=== PATIENT | female | born 1990 ===

== ENCOUNTER 2023-09-21 16:35 | Inpatient (IN) | payer BC ==
--- OUTSIDE RECORDS SUMMARY | 2023-09-21 16:42 | XMS REPORT | Continuity of Care Document ---
:1990 Author Organization [facility] t Address [address] [facility] [address] [place] [address] Care Team Providers Name Role Phone BETHANIE GUERRA Attending Clinician Unavailable YESICA BERRY Attending Clinician Unavailable BETHANIE GUERRA Admitting Clinician Unavailable YESICA BERRY Admitting Clinician Unavailable Payers Payer Name Policy Type Policy Number Effective Date Expiration Date S [facility] [employer] [id number] 2019 00:00:00 [employer] EPO Problems This patient has no known problems. Allergies, Adverse Reactions, Alerts This patient has no known allergies or adverse reactions. Medications This patient has no known medications. Procedures This patient has no known procedures. Encounters Start End Encounter Admission Attending Care Care Encounter Source Date/Time Date/Time Type Type Clinicians Facility Department ID 2022-10-18 Outpatient [facility] [id number] [place] 10:45:19 [id number] [facility] 2022-10-11 Inpatient MARI [facility] [address] [facility] 11:04:14 BETHANEI 2022-10-06 Outpatient [facility] [id number] [place] 11:38:53 [id number] [facility] 2022-10-03 Inpatient JAMAL, [facility] [address] [facility] 08:45:47 YESICA 2022-09-11 Outpatient [facility] [id number] [place] 13:41:40 [id number] [facility] 2022-07-27 Outpatient [facility] [id number] [place] 21:25:38 [id number] [facility] 2022-06-13 Outpatient [facility] [id number] [place] 14:56:47 [id number] [facility] 2022-06-08 Outpatient [facility] [id number] [place] 09:35:43 [id number] [facility] 2022-06-06 Outpatient [facility] [id number] [place] 08:58:52 [id number] [facility] 2022-05-30 Outpatient [facility] [id number] [place] 14:55:19 [id number] [facility] 2022-05-26 Outpatient [facility] [id number] [place] 09:15:50 [id number] [facility] 2022-05-16 Outpatient [facility] [id number] [place] 09:58:16 [id number] [facility] 2022-04-04 Outpatient [facility] [id number] [place] 09:32:25 [id number] [facility] 2022-03-31 Outpatient [facility] [id number] [place] 06:36:08 [id number] [facility] 2022-03-30 Outpatient [facility] [id number] [place] 15:56:10 [id number] [facility] 2022-03-10 Outpatient [facility] [id number] [place] 08:45:51 [id number] 2022-10-15 Inpatient Nacho JAMAL [facility] [address] [facility] 09:35:00 13:30:00 YESICA 2022-10-10 2022-10-10 Outpatient [facility] [id number] [place] 15:00:00 15:38:46 2022-09-13 2022-09-13 Outpatient [facility] [id number] [place] 15:00:00 16:03:33 Health 2022-06-27 2022-06-27 Outpatient [facility] [id number] [place] 09:45:00 10:03:44 Health 2020-04-07 2020-04-09 Inpatient JAMAL [facility] [address] [facility] 16:28:00 13:45:00 YESICA Results This patient has no known results.
[2023-09-21 17:11] VITALS: BMI 23.5
[2023-09-21] MEDS ORDERED: ONDANSETRON 4 MG/2 ML VIAL IV PRN (17:48)
[2023-09-21] MEDS ORDERED: HYDROMORPHONE HCL 1 MG/ML INJ IV PRN (17:48)
[2023-09-21] MEDS: HYDROMORPHONE HCL 0.5 MG/0.5 ML INJ IV PRN (18:44)
[2023-09-21] MEDS: AMPICILLIN/SULBACT 3 GM in NA CHLORIDE 0.9% 100 ML IVPB SCH ×2 (18:45→23:26)
[2023-09-21] MEDS: NA CHLORIDE 0.9% 1,000 ML IV SCH (18:45)
[2023-09-21 19:09] LABS: Protime INR 1.07
[2023-09-21 19:11] LABS: Absolute Lymphocytes (CBC) 2.4 K/uL (0.7-4.9); Hematocrit 38.9 % (36.0-45.0); Lymphocytes % 22.6 % (15.3-44.8); MCV 86.3 fL (80-100); MPV 8.6 fL (7.6-11.3); Platelets 243 thou/uL (152-406); RBC Red Blood Cell Count 4.51 M/uL (3.86-4.86)
[2023-09-21 19:15] LABS: Potassium 3.7 mEq/L (3.5-5.1)
[2023-09-21] MEDS: ACETAMINOPHEN 500 MG TAB PO PRN (20:26)
[2023-09-22] MEDS: AMPICILLIN/SULBACT 3 GM in NA CHLORIDE 0.9% 100 ML IVPB SCH ×3 (05:25→18:24)
[2023-09-22] MEDS: NA CHLORIDE 0.9% 1,000 ML IV SCH (07:57)
[2023-09-22] MEDS: HYDROMORPHONE HCL 0.5 MG/0.5 ML INJ IV PRN ×2 (08:00→16:49)
--- NOTE | 2023-09-22 09:38 | P.HP ---
Certification for Inpatient Patient admitted to: Inpatient With expected LOS: >2 Midnights Patient will require the following post-hospital care: None Practitioner: I am a practitioner with admitting privileges, knowledge of patient current condition, hospital course, and medical plan of care. Services: Services provided to patient in accordance with Admission requirements found in Title 42 Section 412.3 of the Code of Federal Regulations Patient History Date of Service: 09/21/23 Reason for admission: Mandibular osteomyelitis History of Present Illness: Patient is a 33-year-old female who came to the hospital after she was diagnosed by her oral maxillofacial surgeon, Dr. Yayo mart, with an infected mandible. And had a tooth extraction done about a month ago. Her wisdom tooth was bothering her and at that time it was removed. The right lower tooth was removed patient had necrotic bone tissue noted and this was debrided. Patient was followed up earlier this week and had a CT performed which revealed persistent necrosis of the mandible. The tooth next to the right lower wisdom tooth was removed that area of the bone was felt to be necrotic so there was debridement performed. Small area to the mandible that was infected was removed. Spoke with oral maxillofacial surgery and infectious disease. Plan of care at this time would be IV antibiotics and to treat this like an osteomyelitis infection. Plan is to get a PICC line placed and 6 weeks of IV antibiotics arranged. Infectious diseases consulted. They recommended Unasyn at this time. Patient will be admitted to the hospital for further treatment. Allergies No Known Allergies Allergy (Unverified 09/21/23 17:29) Home Medications: NK [No Home Meds] 09/21/23 - Past Medical/Surgical History Has patient received pneumonia vaccine in the past: No Diabetic: No -: wisdom teeth pulled -: mandable sx - Family History Father Family History: Reviewed- Non-Contributory - Social History Smoking Status: Never smoker Alcohol use: No CD- Drugs: No Caffeine use: No Place of Residence: Home Review of Systems 10-point ROS is otherwise unremarkable Physical Examination - Vital Signs Temperature: 98.8 F Blood Pressure: 111/70 Pulse: 64 Respirations: 16 Pulse Ox (%): 98 - Physical Exam General: Alert, In no apparent distress, Oriented x3 HEENT: Atraumatic, PERRLA, Mucous membr. moist/pink, Other (Swelling of the right mandibular bone), EOMI, Sclerae nonicteric Neck: Supple, 2+ carotid pulse no bruit, No LAD, Without JVD or thyroid abnormality Respiratory: Clear to auscultation bilaterally, Normal air movement Cardiovascular: Regular rate/rhythm, Normal S1 S2, No murmurs Gastrointestinal: Normal bowel sounds, Soft and benign, Non-distended, No tenderness Musculoskeletal: No clubbing, No swelling, No tenderness Integumentary: No rashes Neurological: Normal gait, Normal speech, Normal strength at 5/5 x4 extr, Normal tone, Sensation intact, Cranial nerves 3-12 intact, Normal affect Lymphatics: No axilla or inguinal lymphadenopathy - Studies Laboratory Data (last 24 hrs) 09/21/23 09/21/23 09/21/23 18:40 18:40 18:40 WBC 10.60 Hgb 13.3 Hct 38.9 Plt Count 243 PT 11.8 INR 1.07 APTT 44.5 H Sodium 137 Potassium 3.7 BUN 15 Creatinine 0.83 Glucose 162 H Assessment & Plan - Problems (Diagnosis) (1) Acute osteomyelitis of mandible Current Visit: Yes Status: Acute - Plan PLAN: 1. Continue with IV antibiotic 2. Continue with wound care 3. ID consultation/Oral maxillofacial surgery consultation 4. Gentle IV hydration 5. Monitor CBC 6. Strict blood sugar monitoring 7. Pain control 8. GI and DVT prophylaxis Discharge Plan: Home Plan to discharge in: Greater than 2 days - Advance Directives Does patient have a Living Will: No Does patient have a Durable POA for Healthcare: No - Code Status/Comfort Care Code Status Assessed: Yes Code Status: Full Code Critical Care: No Time Spent Managing PTS Care (In Minutes): 45
--- NOTE | 2023-09-22 09:39 | P.PN ---
Subjective Chief Complaint: Mandibular osteomyelitis <Ivett Block - Last Filed: 09/22/23 09:38> Date of Service: 09/22/23 Reports that swelling of the right jaw, worse today. No trouble breathing or swallowing. No reported fever <AbhishekshubhamEmerita - Last Filed: 09/22/23 11:26> Review of Systems 10-point ROS is otherwise unremarkable <Emerita Donaldson - Last Filed: 09/22/23 11:26> Physical Examination - Vital Signs Temperature: 98.8 F Blood Pressure: 111/70 Pulse: 64 Respirations: 16 Pulse Ox (%): 98 - Studies Laboratory Data (last 24 hrs) 09/21/23 09/21/23 09/21/23 18:40 18:40 18:40 WBC 10.60 Hgb 13.3 Hct 38.9 Plt Count 243 PT 11.8 INR 1.07 APTT 44.5 H Sodium 137 Potassium 3.7 BUN 15 Creatinine 0.83 Glucose 162 H <Faye Blockkira Shayan - Last Filed: 09/22/23 09:38> - Physical Exam General: Alert, In no apparent distress, Oriented x3 HEENT: Atraumatic, Normocephalic, Mucous membr. moist/pink, Other (R) jaw swelling, no drooling, 02 sats 98%) Neck: Supple, 2+ carotid pulse no bruit, JVD not distended Respiratory: Clear to auscultation bilaterally, Normal air movement Cardiovascular: No edema, Normal pulses, Regular rate/rhythm Capillary refill: <2 Seconds Gastrointestinal: Normal bowel sounds, Soft and benign Musculoskeletal: No clubbing, No swelling Integumentary: Other (right jaw swelling, tenderness, no redrenss or drainge) Neurological: Normal speech, Normal strength at 5/5 x4 extr - Studies Laboratory Data (last 24 hrs) 09/21/23 09/21/23 09/21/23 18:40 18:40 18:40 WBC 10.60 Hgb 13.3 Hct 38.9 Plt Count 243 PT 11.8 INR 1.07 APTT 44.5 H Sodium 137 Potassium 3.7 BUN 15 Creatinine 0.83 Glucose 162 H <Emerita Donaldson - Last Filed: 09/22/23 11:26> Assessment & Plan - Problems (Diagnosis) (1) Acute osteomyelitis of mandible Current Visit: Yes Status: Acute - Plan PLAN: 1. Continue with IV antibiotic 2. Continue with wound care 3. ID consultation/Oral maxillofacial surgery consultation 4. Gentle IV hydration 5. Monitor CBC 6. Strict blood sugar monitoring 7. Pain control 8. GI and DVT prophylaxis - Advance Directives Does patient have a Living Will: No Does patient have a Durable POA for Healthcare: No - Code Status/Comfort Care Code Status: Full Code <Ivett Block - Last Filed: 09/22/23 09:38> - Plan (1) Acute osteomyelitis of mandible Current Visit: Yes Status: Acute - Plan 09/[address] face/neck rule out worsening abscess Physician Review: Patient Assessed, Agree with Above Assessment and Plan Critical Care: No Time Spent Managing PTS Care (In Minutes): 35 <Emerita Donaldson - Last Filed: 09/22/23 11:26>
--- NOTE | 2023-09-22 12:18 | RAD REPORT ---
EXAM DESCRIPTION: CT - Soft Tissue Neck W/Contr CLINICAL HISTORY: NECK SWELLING COMPARISON: No comparisons TECHNIQUE All CT scans are performed using dose optimization technique as appropriate and may includ e automated exposure control or mA/KV adjustment according to patient size. FINDINGS: Post procedural changes from prior right second and third molar extraction and reportedly removal of a portion of necrotic mandibular bone. Right-sided facial swelling is present. Enhancing f luid is present at the cavities and along the buccal mucosa. The fluid external to the cavity measure s approximately 9 mm x 5 mm. Changes from prior left third molar extraction. Fossa Rosenmller are no rmal. Parapharyngeal fat triangles are symmetric. Tongue base structures are normal. Epiglottis and aryepiglottic folds are normal. Piriform sinuses are well aerated. The vocal cords are normal in appearance. Salivary glands are normal in appearance. Upper lung avila are clear. Included intracranial contents are unremarkable. IMPRESSION: Procedural changes from recent right mandibular molar extraction with small enhancing fl uid collection concerning for a small abscess. Right-sided facial swelling likely reflecting a cellul itis. The airway is widely patent. The inflammatory changes do not extend into the deeper structures of the neck.
[2023-09-22] MEDS ORDERED: VANCOMYCIN 1.25 GM in NA CHLORIDE 0.9% 250 ML IVPB SCH (16:00)
[2023-09-22] MEDS ORDERED: DIPHENHYDRAMINE 50 MG/ML VIAL IV ONE (18:11)
[2023-09-22] MEDS ORDERED: dexAMETHasone 4 MG/ML VIAL IV ONE (18:11)
[2023-09-22] MEDS: Mupirocin NASAL 2 APPL/1 GM TUBE NAS SCH (20:53)
[2023-09-23] MEDS: AMPICILLIN/SULBACT 3 GM in NA CHLORIDE 0.9% 100 ML IVPB SCH ×5 (00:11→23:53)
[2023-09-23] MEDS: NA CHLORIDE 0.9% 1,000 ML IV SCH ×3 (07:58→21:46)
[2023-09-23] MEDS: Mupirocin NASAL 2 APPL/1 GM TUBE NAS SCH ×2 (07:59→20:12)
--- NOTE | 2023-09-23 08:03 | P.PN ---
Subjective Date of Service: 09/23/23 Chief Complaint: Mandibular osteomyelitis Subjective: No new changes Reports that swelling of feels same today, No trouble breathing or swallowing. No reported fever <Emerita Donaldson - Last Filed: 09/23/23 09:35> Date of Service: 09/23/23 <Ivett Block - Last Filed: 09/24/23 06:31> Review of Systems 10-point ROS is otherwise unremarkable <Emerita Donaldson - Last Filed: 09/23/23 09:35> Physical Examination - Vital Signs Temperature: 97.6 F Blood Pressure: 109/63 Pulse: 60 Respirations: 16 Pulse Ox (%): 96 - Physical Exam General: Alert, In no apparent distress, Oriented x3 HEENT: Atraumatic, Normocephalic, Other Neck: Supple, 2+ carotid pulse no bruit Respiratory: Clear to auscultation bilaterally, Normal air movement Cardiovascular: No edema, Normal pulses, Regular rate/rhythm Capillary refill: <2 Seconds Gastrointestinal: Normal bowel sounds, Soft and benign Musculoskeletal: No clubbing, No swelling Integumentary: Other ( Other (right jaw swelling, tenderness, no redrenss or drainge)) Neurological: Normal speech, Normal strength at 5/5 x4 extr <Emerita Donaldson - Last Filed: 09/23/23 09:35> Assessment And Plan - Plan (1) Acute osteomyelitis of mandible Current Visit: Yes Status: Acute - Plan PLAN: 1. Continue with IV antibiotic 2. Continue with wound care 3. ID consultation/Oral maxillofacial surgery consultation 4. Gentle IV hydration 5. Monitor CBC 6. Strict blood sugar monitoring 7. Pain control 8. GI and DVT prophylaxis 09/[address] face/neck rule out worsening abscess IMPRESSION: Procedural changes from recent right mandibular molar extraction with small enhancing fluid collection concerning for a small abscess. Right-sided facial swelling likely reflecting a cellulitis. The airway is widely patent. The inflammatory changes do not extend into the deeper structures of the neck. Discharge Plan: Home - Code Status/Comfort Care Code Status: Full Code Physician Review: Patient Assessed, Agree with Above Assessment and Plan Critical Care: No Time Spent Managing PTS Care (In Minutes): 35 <Emerita Donaldson - Last Filed: 09/23/23 09:35> - Current Problems (Diagnosis) (1) Acute osteomyelitis of mandible Current Visit: Yes Status: Acute <Ivett Block - Last Filed: 09/24/23 06:31> Date of Service: 09/23/23 Spoke with oral maxillofacial surgeon. Part of the mandible that was necrotic was removed. Repeat CT did not show any bone necrosis. Questionable very small fluid collection but patient without fever and no white count so oral maxillofacial surgery did not think this was a true abscess. The patient had a lot of dental work done in that area so it could be the fact that they cleaned it out and irrigated it with fluid. May need to repeat CT imaging in about a week. Continue with IV antibiotic therapy for 6 weeks per recommendation from infectious disease. <Ivett Block - Last Filed: 09/24/23 06:31>
[2023-09-23] MEDS: KETOROLAC 30 MG/ML INJ IV PRN ×2 (10:29→21:46)
--- NOTE | 2023-09-23 13:08 | RAD REPORT ---
EXAM DESCRIPTION: RAD - Chest Single View - 09/23/2023 2:55 am CLINICAL HISTORY: 33 years Female PICC placement COMPARISON: None FINDINGS: Right upper extremity PICC tip likely in the caudal SVC. Lung volumes adequate. Cardiac silhouette is normal in size. No pneumothorax. No large pleural effusion. No focal consolidation. Mild bilateral interstitial thickening. No acute bony finding. IMPRESSION: 1. Right upper extremity PICC tip likely in the caudal SVC. 2. Mild bilateral interstitial thickening. Electronically signed by: Roberto Chua MD 09/23/2023 3:08 AM LASER ENGINEER Due to temporary technical issues with the PACS/Fluency reporting system, reports are being signed by the in house radiologists without review as a courtesy to insure prompt reporting. The interpreting radiologist is fully responsible for the content of the report.
[2023-09-24] MEDS: AMPICILLIN/SULBACT 3 GM in NA CHLORIDE 0.9% 100 ML IVPB SCH ×2 (05:17→11:45)
[2023-09-24 08:03] LABS: Hematocrit 37.7 % (36.0-45.0); MCV 86.9 fL (80-100); MPV 8.5 fL (7.6-11.3); Platelets 232 thou/uL (152-406); RBC Red Blood Cell Count 4.34 M/uL (3.86-4.86)
[2023-09-24 08:18] LABS: Potassium 3.9 mEq/L (3.5-5.1)
[2023-09-24] MEDS: ACETAMINOPHEN 500 MG TAB PO PRN (08:51)
[2023-09-24] MEDS: Mupirocin NASAL 2 APPL/1 GM TUBE NAS SCH (09:00)
--- NOTE | 2023-09-24 09:09 | P.PN ---
Subjective Date of Service: 09/24/23 Chief Complaint: Mandibular osteomyelitis Subjective: No new changes Physical Examination - Vital Signs Temperature: 97.2 F Blood Pressure: 109/63 Pulse: 55 Respirations: 16 Pulse Ox (%): 96 - Physical Exam General: Alert, Oriented x3 HEENT: Atraumatic Neck: Supple Respiratory: Normal air movement Cardiovascular: Regular rate/rhythm, Normal S1 S2 Gastrointestinal: Soft and benign Musculoskeletal: No swelling Neurological: Normal speech, Normal strength at 5/5 x4 extr - Studies Laboratory Data (last 24 hrs) 09/24/23 09/24/23 07:40 07:40 WBC 7.90 Hgb 12.8 Hct 37.7 Plt Count 232 Sodium 141 Potassium 3.9 BUN 13 Creatinine 0.60 Glucose 96 Assessment And Plan - Plan Assessment And Plan - Plan (1) Acute osteomyelitis of mandible Current Visit: Yes Status: Acute - Plan PLAN: 1. Continue with IV antibiotic 2. Continue with wound care 3. ID consultation/Oral maxillofacial surgery consultation 4. Gentle IV hydration 5. Monitor CBC 6. Strict blood sugar monitoring 7. Pain control GI and DVT prophylaxis Physician Review: Patient Assessed, Agree with Above Assessment and Plan
[2023-09-24] MEDS: NA CHLORIDE 0.9% 1,000 ML IV SCH (11:45)
[2023-09-24] MEDS: KETOROLAC 30 MG/ML INJ IV PRN (12:12)
[2023-09-24 14:16] VITALS: BP 116/74; TEMP 97.7
--- NOTE | 2023-09-24 14:16 | P.DS ---
Admission Date: 09/21/23 Discharge Date: 09/24/23 Disposition: DC HOME/HOME HEALTH CARE Discharge Condition: GOOD Reason for Admission: Mandibular osteomyelitis Brief History of Present Illness: 33-year-old female patient admitted for management of complicated dental procedure with osteomyelitis of the mandible on the right. This placed on IV antibiotic therapy and had imaging studies done to rule out underlying abscess/osteomyelitis. Hospital Course: Antibiotic therapy of Unasyn was started on admission with pain control medications. Patient had imaging studies done to rule out osteomyelitis and none was found. There was concern for possible abscess and this was reviewed by maxillofacial surgeon with any significant concern. She was asked to be evaluated by infectious disease who recommended 6 weeks of IV antibiotic therapy with Zosyn. Home antibiotic therapy was arranged and patient was discharged in stable condition to continue pain control medication and antibiotic. With surgeon and primary care physician as scheduled on outpatient. Vital Signs/Physical Exam: Temp Pulse Resp BP Pulse Ox 97.2 F 55 16 109/63 96 09/24/23 09:10 09/24/23 09:10 09/24/23 09:10 09/24/23 09:10 09/24/23 09:10 General: Alert, Oriented x3 HEENT: Atraumatic Neck: Supple Respiratory: Normal air movement Cardiovascular: Regular rate/rhythm, Normal S1 S2 Gastrointestinal: Soft and benign Musculoskeletal: No swelling Neurological: Normal speech, Normal strength at 5/5 x4 extr Laboratory Data at Discharge: WBC 7.90 thou/uL (4.3-10.9) 09/24/23 07:40 Hgb 12.8 g/dL (12.0-15.0) 09/24/23 07:40 Hct 37.7 % (36.0-45.0) 09/24/23 07:40 Plt Count 232 thou/uL (152-406) 09/24/23 07:40 PT 11.8 SECONDS (9.5-12.5) 09/21/23 18:40 INR 1.07 09/21/23 18:40 APTT 44.5 SECONDS (24.3-36.9) H 09/21/23 18:40 Sodium 141 mEq/L (136-145) 09/24/23 07:40 Potassium 3.9 mEq/L (3.5-5.1) 09/24/23 07:40 BUN 13 mg/dL (7-18) 09/24/23 07:40 Creatinine 0.60 mg/dL (0.55-1.02) 09/24/23 07:40 Glucose 96 mg/dL (74-106) 09/24/23 07:40 Home Medications: Ibuprofen [Motrin] 200 mg PO TID PRN 5 Days #20 tab 09/24/23 PIPER/TAZO/NS 3.375gm [Zosyn 3.375 gm/100 ml Ns Ivpb] 3.375 gm IV Q8H 42 Days #126 ml 09/24/23 New Medications: Ibuprofen [Motrin] 200 mg PO TID PRN 5 Days #20 tab PRN Reason: Pain Scale 5-7 (Moderate) PIPER/TAZO/NS 3.375gm [Zosyn 3.375 gm/100 ml Ns Ivpb] 3.375 gm IV Q8H 42 Days #126 ml Diet: Regular
[2023-09-24 16:49] VITALS: O2SAT 98
== END 2023-09-24 15:33 | disposition home health service (06) | DRG 159 ==
LOC: 2ND 16:35
PROVIDERS: ADMIT Hospitalist; ATTEND Hospitalist
PROC: 02HV33Z Insertion of Infusion Device into Superior Vena Cava, Percutaneous Approach (ICD-10-PCS; principal; 2023-09-23)
DX: M27.2 Inflammatory conditions of jaws (principal); A69.0 Necrotizing ulcerative stomatitis
CPT/HCPCS: 36415; 36569; 70491; 71045; 80048; 80202; 84145; 85025; 85610; 85730; 87040; 87070; 87075; 87205; J0295; J1100; J1170; J1200; J7030; J7050; Q9967